=== PATIENT | female | born 1975 | race Caucasian/White ===

== ENCOUNTER 2017-02-03 08:05 | Emergency (ER) | payer OTHER ==
[2017-02-03 08:11] VITALS: RESP 18
--- NOTE | 2017-02-03 08:17 | EDPHY ---
H & P Stated Complaint: Mid abd pain since 1am;nausea, no vomiting or diarrhea Time Seen by Provider: 02/03/17 08:16 - Personal History LMP (Females 10-55): Now Current Tetanus Diphtheria and Acellular Pertussis (TDAP): Yes Tetanus Vaccine Date: unk - Medical/Surgical History Hx Asthma: No Hx Chronic Respiratory Disease: No Hx Diabetes: No Hx Cardiac Disease: No Hx Renal Disease: No Hx Cirrhosis: No Hx Alcoholism: No Hx HIV/AIDS: No Hx Splenectomy or Spleen Trauma: No Other PMH: hx: migraines, , R ovary removal, APPY, anemia, chronic back pain - Social History Smoking Status: Current some day smoker Constitutional: Initial Vital Signs Temperature (C) 36.7 C 02/03/17 08:05 Heart Rate 69 02/03/17 08:05 Respiratory Rate 18 02/03/17 08:05 Blood Pressure 105/74 02/03/17 08:05 O2 Sat (%) 97 02/03/17 08:05 O2 Delivery Mode Room Air Allergies/Adverse Reactions: No Known Allergies Allergy (Verified 02/03/17 08:07) Home Medications: Medication Instructions Recorded Cyclobenzaprine [Flexeril 10 MG 10 mg PO 02/03/17 (*)] Ranitidine HCl [Zantac 75] 150 mg PO DAILY #60 tablet 02/03/17 traMADol [Ultram 50 mg (*)] 50 mg PO Q4 02/03/17 Medical Decision Making ED Course/Re-evaluation: CHIEF COMPLAINT: Abdominal pain HISTORY OF PRESENT ILLNESS: 41-year-old female who has had both a appendectomy and cholecystectomy. She has chronic back pain she has been using 800 mg of ibuprofen once to twice a day for quite a while. She has never had pain like this before. She has pain right in the epigastric area with some nausea but no vomiting diarrhea fevers or chills. She denies any bad food. The pain started about 1:00 a.m. last night which is about 7 and 0.5 hours ago. She denies any associated symptoms. REVIEW OF SYSTEMS: A 10 point review of systems was performed and is negative with the exception of the elements mentioned in the history of present illness. PHYSICAL EXAM: HR, BP, O2 Sat, RR. Temp noted General Appearance: Alert, well hydrated, appropriate, and non-toxic appearing. Head: Atraumatic without scalp tenderness or obvious injury Eyes: Pupils equal, round, reactive to light and accommodation, EOMI, no trauma , no injection. Ears: Clear bilaterally, no perforation, normal landmarks Nose: Atraumatic, no rhinorrhea, clear. Throat: There is no erythema or exudates, no lesions, normal tonsils, mucus membranes moist. Neck: Supple, 2+ carotid upstroke, nontender, no lymphadenopathy. Respiratory: No retractions, no distress, no wheezes, and no accessory muscle use. Lungs are clear to auscultation bilaterally. Cardiovascular: Regular rate and rhythm, no murmurs, rubs, or gallops. Bilateral carotid, radial, dorsalis pedis, and posterior tibial pulses intact. Good capillary refill all extremities. Gastrointestinal: Abdomen is soft, mild tenderness in the epigastric area, non- distended, no masses, no rebound, no guarding, no peritoneal signs. Musculoskeletal: Normal active ROM of all extremities, atraumatic. Neurological: Alert, appropriate, and interactive. The patient has normal DTRs and non-focal cranial nerves, motor, sensory, and cerebellar exam. Skin: No rashes, good turgor, no nodules on palpation. Past medical history: Chronic back pain Past surgical history: Cholecystectomy, appendectomy Family history: Noncontributory Social history: , employed, does not abuse tobacco drugs or alcohol DIAGNOSTICS/PROCEDURES/CRITICAL CARE TIME: Study: CT of the abdomen and pelvis with IV contrast Indication: abdominal pain Results: CT scan of the abdomen and pelvis was obtained. The results of the study are normal. The study was read by the radiologist, Dr. Rutherford. I viewed the images myself on the PACS system. DIFFERENTIAL DIAGNOSIS: The differential diagnosis for the patient's abdominal pain included but was not limited to ovarian cyst, pelvic inflammatory disease, ovarian torsion, urinary tract infection, ectopic , gastritis, peptic ulcer disease MEDICAL DECISION MAKING: This patient has a soft benign abdomen however she has got pain in the epigastric area. She has had both a cholecystectomy and appendectomy. Laboratory studies are pending. Additionally, CT scan is pending. This patient most likely has some sort of gastritis or peptic ulcer disease secondary to her chronic infrequent use of high-dose ibuprofen for her chronic back pain. I have given her a GI cocktail and also some Pepcid to see if that helps while we are waiting for further studies. CT is negative per Dr. Rutherford. I reassessed patient and discussed imaging results. She continues to have a benign abdomen on exam. I recommended discontinuing ibuprofen usage and following up with her PCP for back pain management solutions. Return precautions given. She is comfortable with this plan. - Data Points Laboratory Results: Laboratory Results 02/03/17 08:45 02/03/17 08:45 02/03/17 02/03/17 02/03/17 08:49 08:45 08:45 WBC RBC Hgb POC Hgb 10.9 gm/dL L gm/dL (12.6-16.3) Hct POC Hct 32 % L % (38-47) MCV MCH MCHC RDW Plt Count MPV Neut % (Auto) Lymph % (Auto) [place] % (Auto) Eos % (Auto) Baso % (Auto) Nucleat RBC Rel Count Absolute Neuts (auto) Absolute Lymphs (auto) Absolute Monos (auto) Absolute Eos (auto) Absolute Basos (auto) Absolute Nucleated RBC Immature Gran % Immature Gran # POC Sodium 141 mEq/L mEq/L (134-144) Sodium 138 mEq/L mEq/L (134-144) POC Potassium 4.0 mEq/L mEq/L (3.3-5.0) Potassium 4.3 mEq/L mEq/L (3.5-5.2) POC Chloride 106 mEq/L mEq/L (97-110) Chloride 107 mEq/L mEq/L (97-110) Carbon Dioxide 21 mEq/l L mEq/l (22-31) Anion Gap 10 mEq/L mEq/L (8-16) POC BUN 7 mg/dL mg/dL (7-23) BUN 9 mg/dL mg/dL (7-23) Creatinine 0.6 mg/dL mg/dL (0.6-1.0) POC Creatinine 0.5 mg/dL L mg/dL (0.6-1.0) Estimated GFR > 60 Glucose 88 mg/dL mg/dL (70-100) POC Glucose 89 mg/dL mg/dL (70-100) Calcium 9.0 mg/dL mg/dL (8.5-10.4) Total Bilirubin 0.5 mg/dL mg/dL (0.1-1.4) Conjugated Bilirubin 0.3 mg/dL mg/dL (0.0-0.5) Unconjugated Bilirubin 0.2 mg/dL mg/dL (0.0-1.1) AST 36 IU/L IU/L (14-46) ALT 48 IU/L IU/L (9-52) Alkaline Phosphatase 67 IU/L IU/L (38-126) Total Protein 7.0 g/dL g/dL (6.3-8.2) Albumin 3.6 g/dL g/dL (3.5-5.0) Lipase 42 IU/L IU/L (23-300) Beta HCG, Qual NEGATIVE 02/03/17 08:45 WBC 5.52 10^3/uL 10^3/uL (3.80-9.50) RBC 4.34 10^6/uL 10^6/uL (4.18-5.33) Hgb 9.8 g/dL L g/dL (12.6-16.3) POC Hgb Hct 31.7 % L % (38.0-47.0) POC Hct MCV 73.0 fL L fL (81.5-99.8) MCH 22.6 pg L pg (27.9-34.1) MCHC 30.9 g/dL L g/dL (32.4-36.7) RDW 17.2 % H % (11.5-15.2) Plt Count 396 10^3/uL 10^3/uL (150-400) MPV 8.5 fL L fL (8.7-11.7) Neut % (Auto) 56.3 % % (39.3-74.2) Lymph % (Auto) 31.3 % % (15.0-45.0) [place] % (Auto) 7.2 % % (4.5-13.0) Eos % (Auto) 3.6 % % (0.6-7.6) Baso % (Auto) 1.1 % % (0.3-1.7) Nucleat RBC Rel Count 0.0 % % (0.0-0.2) Absolute Neuts (auto) 3.10 10^3/uL 10^3/uL (1.70-6.50) Absolute Lymphs (auto) 1.73 10^3/uL 10^3/uL (1.00-3.00) Absolute Monos (auto) 0.40 10^3/uL 10^3/uL (0.30-0.80) Absolute Eos (auto) 0.20 10^3/uL 10^3/uL (0.03-0.40) Absolute Basos (auto) 0.06 10^3/uL 10^3/uL (0.02-0.10) Absolute Nucleated RBC 0.00 10^3/uL 10^3/uL (0-0.01) Immature Gran % 0.5 % % (0.0-1.1) Immature Gran # 0.03 10^3/uL 10^3/uL (0.00-0.10) POC Sodium Sodium POC Potassium Potassium POC Chloride Chloride Carbon Dioxide Anion Gap POC BUN BUN Creatinine POC Creatinine Estimated GFR Glucose POC Glucose Calcium Total Bilirubin Conjugated Bilirubin Unconjugated Bilirubin AST ALT Alkaline Phosphatase Total Protein Albumin Lipase Beta HCG, Qual Medications Given: Discontinued Medications Al Hydroxide/Mg Hydroxide (Maalox Susp) 30 ml PO ONCE ONE Stop: 02/03/17 08:30 Last Admin: 02/03/17 09:01 Dose: 30 ml Famotidine (Pepcid) 40 mg PO EDNOW ONE Stop: 02/03/17 08:30 Last Admin: 02/03/17 09:00 Dose: 40 mg Hydromorphone HCl (Dilaudid) 1 mg IVP EDNOW ONE Stop: 02/03/17 08:32 Last Admin: 02/03/17 09:02 Dose: 1 mg Hyoscyamine Sulfate (Levsin, Hyomax-Sl) 0.25 mg PO ONCE ONE Stop: 02/03/17 08:30 Last Admin: 02/03/17 09:01 Dose: 0.25 mg Sodium Chloride (Ns) 1,000 mls @ 0 mls/hr IV EDNOW ONE; Wide Open PRN Reason: Protocol Stop: 02/03/17 08:30 Last Admin: 02/03/17 08:59 Dose: 1,000 mls Lidocaine (Lidocaine 2% Viscous) 15 ml PO ONCE ONE Stop: 02/03/17 08:30 Last Admin: 02/03/17 09:01 Dose: 15 ml Point of Care Test Results: 02/03/17 08:49 POC Sodium 141 POC Potassium 4.0 POC Chloride 106 POC BUN 7 POC Creatinine 0.5 L POC Glucose 89 Departure - Departure Disposition: Home, Routine, Self-Care Clinical Impression: Abdominal pain Qualifiers: Abdominal location: generalized Qualified Code(s): R10.84 - Generalized abdominal pain Condition: Good Instructions: Abdominal Pain (ED) Additional Instructions: 1. Stop using ibuprofen. The high dosages you have been using over an extended period of time are likely causing stomach irritation and pain. 2. Follow up with your primary care provider for back pain management. 3. Return to the ED if you experience dark stools, vomit blood, have severe pain , or develop other worsening of condition. Referrals: Radha Capone MD [Primary Care Provider] - As per Instructions Prescriptions: Ranitidine HCl [Zantac 75] 150 mg PO DAILY #60 tablet
[2017-02-03] MEDS ORDERED: MAG HYDROX/AL HYDROX/SIMETH 30 ML UDCUP PO ONE (08:29)
[2017-02-03] MEDS ORDERED: FAMOTIDINE 20 MG TAB PO ONE (08:29)
[2017-02-03] MEDS ORDERED: NS 1,000 ML IV ONE (08:29)
[2017-02-03] MEDS ORDERED: LIDOCAINE 2% VISCOUS 15 ML UDCUP PO ONE (08:29)
[2017-02-03] MEDS ORDERED: HYOSCYAMINE SULFATE 0.125 MG TAB PO ONE (08:29)
[2017-02-03] MEDS ORDERED: HYDROmorphONE/DILAUDID 1 MG/ML SYR IVP ONE (08:31)
[2017-02-03 08:52] LABS: % IMMATURE GRANULYOCYTES 0.5 % (0.0-1.1); ABSOLUTE IMMATURE GRANULOCYTES 0.03 10^3/uL (0.00-0.10); ADD DIFF? NO; ADD MORPH? NO; ADD SCAN? NO; ATYPICAL LYMPHOCYTE FLAG 10 (0-99); FRAGMENT RBC FLAG 20 (0-99); HEMATOCRIT 31.7 % (38.0-47.0); HEMOGLOBIN 9.8 g/dL (12.6-16.3); LEFT SHIFT FLG 0 (0-99); LIPEMIA HEMOLYSIS FLAG 80 (0-99); MEAN CELL HEMOGLOBIN 22.6 pg (27.9-34.1); MEAN CELL HEMOGLOBIN CONCENTR. 30.9 g/dL (32.4-36.7); MEAN PLATELET VOLUME 8.5 fL (8.7-11.7); PLATELET CLUMPS FLAG 0 (0-99); PLATELET COUNT 396 10^3/uL (150-400); RED BLOOD CELL COUNT 4.34 10^6/uL (4.18-5.33); RED CELL DISTRIBUTION WIDTH 17.2 % (11.5-15.2)
[2017-02-03] MEDS ORDERED: IOPAMIDOL (ISOVUE-300) 100 ML BTL ONE (09:07)
[2017-02-03 09:27] LABS: ALANINE AMINOTRANSFERASE 48 IU/L (9-52); ALBUMIN 3.6 g/dL (3.5-5.0); ALKALINE PHOSPHATASE 67 IU/L (38-126); ANION GAP 10 mEq/L (8-16); ASPARTATE AMINOTRANSFERASE 36 IU/L (14-46); BILIRUBIN,TOTAL 0.5 mg/dL (0.1-1.4); BILIRUBIN-CONJUGATED 0.3 mg/dL (0.0-0.5); BILIRUBIN-UNCONJUGATED 0.2 mg/dL (0.0-1.1); CARBON DIOXIDE 21 mEq/l (22-31); CHLORIDE 107 mEq/L (97-110); CREATININE 0.6 mg/dL (0.6-1.0); GLOMERULAR FILTRATION RATE > 60; GLUCOSE 88 mg/dL (70-100); POTASSIUM 4.3 mEq/L (3.5-5.2); SODIUM 138 mEq/L (134-144)
[2017-02-03 10:41] VITALS: BP 132/85; PULSE 68; TEMP 98.4; O2SAT 96
== END 2017-02-03 10:38 | disposition home or self-care (01) ==
DX: R10.84 Generalized abdominal pain (principal); F17.200 Nicotine dependence, unspecified, uncomplicated; E86.9 Volume depletion, unspecified
CPT/HCPCS: 82947-QW; 96374; J1170; Q9967

== ENCOUNTER 2017-08-23 23:51 | Observation (INO) | payer OTHER ==
--- NOTE | 2017-08-24 00:06 | EDPHY ---
H & P Stated Complaint: SUPRAPUBIC PAIN X 2 DAYS, RADIATING TO L PELVIC Time Seen by Provider: 08/24/17 00:07 HPI/ROS: HPI CHIEF COMPLAINT: Abdominal pain HISTORY OF PRESENT ILLNESS: Patient is a 42-year-old female, she has a history of gallbladder disease and cholecystectomy, history of a appendectomy, she presents emergency room with lower abdominal pain times 24 hr. The pain is mainly intense on the left lower quadrant left adnexal region and suprapubic region. She has nausea but no vomiting. She states she is a few days late on her menstrual cycle. Last menstrual cycle was July 24. She denies any vaginal discharge or vaginal bleeding. Denies urinary symptoms. Denies dysuria. Denies fever. Denies chest pain or shortness of breath. Pain is located left lower abdomen. Currently 8/10 been present for 24 hr. Strong achiness. Patient is Swedish-speaking only. Nellie RN at bedside conference concierge. Past Medical History: Denies significant medical history Past Surgical History: Appendectomy, cholecystectomy Social History: Denies drugs alcohol tobacco. Family History: Noncontributory ROS REVIEW OF SYSTEMS: A comprehensive 10 point review of systems is otherwise negative aside from elements mentioned in the history of present illness. Exam Constitutional appears well nontoxic in no acute distress, triage nursing summary reviewed, vital signs reviewed, awake/alert. Eyes normal conjunctivae and sclera, EOMI, PERRLA. HENT normal inspection, atraumatic, moist mucus membranes, no epistaxis, neck supple/ no meningismus, no raccoon eyes. Respiratory clear to auscultation bilaterally, normal breath sounds, no respiratory distress, no wheezing. Cardiovascular rate normal, regular rhythm, no murmur, no edema, distal pulses normal. Gastrointestinal mild tender palpation left lower quadrant left adnexa and suprapubic region, no peritoneal signs, no rebound, no guarding, normal bowel sounds, no distension, no pulsatile mass. Genitourinary no CVA tenderness. Musculoskeletal no midline vertebral tenderness, full range of motion, no calf swelling, no tenderness of extremities, no meningismus, good pulses, neurovascularly intact. Skin pink, warm, & dry, no rash, skin atraumatic. Neurologic awake, alert and oriented x 3, AAOx3, moves all 4 extremities equally, motor intact, sensory intact, CN II-XII intact, normal cerebellar, normal vision, normal speech. Psychiatric normal mood/affect. Heme/Lymph/Immune no lymphadenopathy. Differential diagnosis includes but is not limited to and in no particular order : Bowel obstruction, diverticulitis, colitis, enteritis, perforated viscus, gastritis, GERD, esophagitis, urinary tract infection, pyelonephritis, kidney stones Medical Decision Making: Plan for this patient IV establishment blood draw, check urinalysis, check test, basic labs, IV fluids, IV Dilaudid for pain control IV Zofran nausea and re-evaluate. Re-evaluation: CT scan abdomen pelvis with IV contrast shows moderate amount of diverticulitis. Called to me by Dr. Bailon. 0228: Discussed results with the patient. She understands she will be admitted for pain control IV fluids and bowel rest. No free air or abscess or significant free fluid in the abdomen. Additionally she has nitrite positive UTI. 0235: Spoke with Dr. Mcdonald who agrees to admit patient, UTI and Diverticulitis. Source: Patient - Personal History LMP (Females 10-55): Unknown Current Tetanus Diphtheria and Acellular Pertussis (TDAP): Yes Tetanus Vaccine Date: unk - Medical/Surgical History Hx Asthma: No Hx Chronic Respiratory Disease: No Hx Diabetes: No Hx Cardiac Disease: No Hx Renal Disease: No Hx Cirrhosis: No Hx Alcoholism: No Hx HIV/AIDS: No Hx Splenectomy or Spleen Trauma: No Other PMH: hx: migraines, , R ovary removal, APPY, anemia, chronic back pain, BEE - Social History Smoking Status: Former smoker Constitutional: Initial Vital Signs Temperature (C) 37.0 C 08/23/17 23:58 Heart Rate 94 08/23/17 23:58 Respiratory Rate 18 08/23/17 23:58 Blood Pressure 116/71 08/23/17 23:58 O2 Sat (%) 98 08/23/17 23:58 O2 Delivery Mode Room Air Allergies/Adverse Reactions: No Known Allergies Allergy (Verified 02/03/17 08:07) Home Medications: Medication Instructions Recorded Cyclobenzaprine [Flexeril 10 MG 10 mg PO HS 02/03/17 (*)] Ranitidine HCl [Zantac 75] 150 mg PO DAILY #60 tablet 02/03/17 traMADol [Ultram 50 mg (*)] 50 - 100 mg PO HS PRN 02/03/17 Ferrous Sulfate [Ferrous Sulf 325 325 mg PO BID 08/24/17 MG (*)] Medical Decision Making - Diagnostics Imaging Results: Imaging Impressions Abdomen CT 08/24/17 01:47 Impression: 1. Moderate diverticulitis mid sigmoid colon without evidence of associated abscess. 2. 3 cm follicular cyst right adnexa. The study was performed as an emergency on-call case and discussed by telephone with Dr. Anton Heck at 0228 hrs. The final interpretation is concordant with the original communication. - Data Points Laboratory Results: Laboratory Results 08/24/17 00:18 08/24/17 00:18 Microbiology Results: MICROBIOLOGY 08/24/17 00:15 Urine,Clean Catch Urine Culture - Preliminary Medications Given: Acetaminophen (Tylenol) 650 mg PO Q4HRS PRN PRN Reason: Pain, Mild/Fever, Can Take PO Stop: 02/20/18 02:34 Last Admin: 08/24/17 11:00 Dose: 650 mg Hydromorphone HCl (Dilaudid) 2 mg PO Q4HRS PRN PRN Reason: Pain, Severe Able to Take PO Stop: 09/03/17 02:34 Last Admin: 08/25/17 03:35 Dose: 2 mg Dextrose/Sodium Chloride (D5w 1/2 Ns) 1,000 mls @ 100 mls/hr IV CONT OSVALDO Stop: 02/20/18 02:44 Last Admin: 08/25/17 03:35 Dose: 1,000 mls Metronidazole/Sodium Chloride (Flagyl 500 Mg (Premix)) 100 mls @ 100 mls/hr IV Q8HRS OSVALDO PRN Reason: Protocol Stop: 09/23/17 08:59 Last Admin: 08/24/17 21:09 Dose: 100 mls Ondansetron HCl (Zofran) 4 mg IVP Q4HRS PRN PRN Reason: Nausea/Vomiting, Can't Take PO Stop: 02/20/18 02:34 Last Admin: 08/24/17 16:44 Dose: 4 mg Discontinued Medications Ertapenem (Invanz) 1 gm IM EDNOW ONE PRN Reason: Protocol Stop: 08/24/17 02:29 Last Admin: 08/24/17 04:03 Dose: Not Given Hydromorphone HCl (Dilaudid) 0.5 mg IVP EDNOW ONE Stop: 08/24/17 00:14 Last Admin: 08/24/17 00:35 Dose: 0.5 mg Hydromorphone HCl (Dilaudid) 0.5 mg IVP EDNOW ONE Stop: 08/24/17 02:37 Last Admin: 08/24/17 02:48 Dose: 0.5 mg Sodium Chloride (Ns) 1,000 mls @ 0 mls/hr IV EDNOW ONE; Wide Open PRN Reason: Protocol Stop: 08/24/17 00:14 Last Admin: 08/24/17 00:35 Dose: 1,000 mls Ceftriaxone Sodium/Dextrose (Rocephin 1 Gm (Premix)) 50 mls @ 100 mls/hr IV EDNOW ONE PRN Reason: Protocol Stop: 08/24/17 01:22 Last Admin: 08/24/17 01:02 Dose: 50 mls Sodium Chloride (Ns) 1,000 mls @ 0 mls/hr IV ONCE ONE PRN Reason: Wide Open Stop: 08/24/17 01:48 Last Admin: 08/24/17 02:48 Dose: 1,000 mls Metronidazole/Sodium Chloride (Flagyl 500 Mg (Premix)) 100 mls @ 100 mls/hr IV EDNOW ONE PRN Reason: Protocol Stop: 08/24/17 03:33 Last Admin: 08/24/17 02:49 Dose: 100 mls Ketorolac Tromethamine (Toradol) 15 mg IVP EDNOW ONE Stop: 08/24/17 01:48 Last Admin: 08/24/17 02:56 Dose: 15 mg Ondansetron HCl (Zofran) 4 mg IVP EDNOW ONE Stop: 08/24/17 00:14 Last Admin: 08/24/17 00:35 Dose: 4 mg Departure - Departure Disposition: [facility] Acute Clinical Impression: Diverticulitis UTI (urinary tract infection) Qualifiers: Urinary tract infection type: acute cystitis Hematuria presence: with hematuria Qualified Code(s): N30.01 - Acute cystitis with hematuria Condition: Good
[2017-08-24] MEDS ORDERED: ONDANSETRON 4 MG/2 ML VIAL IVP ONE (00:13)
[2017-08-24] MEDS ORDERED: NS 1,000 ML IV ONE ×2 (00:13→01:47)
[2017-08-24] MEDS ORDERED: HYDROmorphONE/DILAUDID 2 MG/ML INJ IVP ONE ×2 (00:13→02:36)
[2017-08-24 01:02] LABS: PLATELET COUNT 420 10^3/uL (150-400)
[2017-08-24] MEDS ORDERED: KETOROLAC 15 MG/1 ML SDV IVP ONE (01:47)
[2017-08-24] MEDS ORDERED: IOPAMIDOL (ISOVUE-300) 100 ML BTL ONE (01:55)
[2017-08-24] MEDS ORDERED: ERTAPENEM 1 GM VIAL IM ONE (02:28)
[2017-08-24] MEDS ORDERED: PROMETHAZINE HCL 25 MG/ML INJ IVP PRN (02:35)
[2017-08-24] MEDS ORDERED: HYDROmorphone HCL/NS 0.5 MG/ML SYR IVP PRN (02:35)
[2017-08-24] MEDS ORDERED: ONDANSETRON DISINTEGRATING 4 MG TAB PO PRN (02:35)
[2017-08-24] MEDS ORDERED: ONDANSETRON 4 MG/2 ML VIAL IVP PRN (02:35)
[2017-08-24] MEDS ORDERED: HYDROmorphONE/DILAUDID 2 MG/ML INJ ONE (02:37)
[2017-08-24] MEDS: D5W 1/2 NS 1,000 ML IV SCH (03:57)
--- NOTE | 2017-08-24 04:11 | PDGENHP ---
History and Physical - Chief Complaint Abdominal pain - History of Present Illness 42 yo F w/ no significant PMHx presents with abdominal pain. Patient states she first noticed lower abdominal pain on Friday. Over the course of Friday the pain worsened so she came to the ED. Her pain is worst in the LLQ. She denies dysuria but does complain of urinary frequency. Work-up in the ED notable for UTI and uncomplicated diverticulitis on CT scan. History Information - Allergies/Home Medication List Allergies/Adverse Reactions: No Known Allergies Allergy (Verified 02/03/17 08:07) Home Medications: Cyclobenzaprine [Flexeril 10 MG (*)] 10 mg PO 02/03/17 [Last Taken Unknown] traMADol [Ultram 50 mg (*)] 50 mg PO Q4 02/03/17 [Last Taken Unknown] I have personally reviewed and updated: family history, medical history - Past Medical History no pertinent PMH - Family History Positive for: cancer - Social History Smoking Status: Former smoker Review of Systems Review of Systems: ROS: 10pt was reviewed & negative except for what was stated in HPI & below Physical Exam Physical Exam: Temp Pulse Resp BP Pulse Ox 37.0 C 72 16 113/74 93 08/24/17 03:29 08/24/17 03:29 08/24/17 03:29 08/24/17 03:29 08/24/17 03:29 O2 (L/minute) 2 Constitutional: appears nourished, uncomfortable Eyes: PERRL, EOMI Ears, Nose, Mouth, Throat: moist mucous membranes, no oral mucosal ulcers Cardiovascular: regular rate and rhythym, no murmur, rub, or gallop Respiratory: no respiratory distress, no rales or rhonchi Gastrointestinal: normoactive bowel sounds, tenderness (LLQ, supra-pubic) Skin: warm, normal color Musculoskeletal: full muscle strength, no muscle tenderness Neurologic: AAOx3, CN II-XII Intact Psychiatric: interacting appropriately, not anxious Lab Data & Imaging Review 08/24/17 00:18 08/24/17 00:18 WBC 11.98 10^3/uL (3.80-9.50) H 08/24/17 00:18 RBC 4.73 10^6/uL (4.18-5.33) 08/24/17 00:18 Hgb 12.4 g/dL (12.6-16.3) L 08/24/17 00:18 Hct 38.5 % (38.0-47.0) 08/24/17 00:18 MCV 81.4 fL (81.5-99.8) L 08/24/17 00:18 MCH 26.2 pg (27.9-34.1) L 08/24/17 00:18 MCHC 32.2 g/dL (32.4-36.7) L 08/24/17 00:18 RDW 23.7 % (11.5-15.2) H 08/24/17 00:18 Plt Count 420 10^3/uL (150-400) H 08/24/17 00:18 MPV 9.4 fL (8.7-11.7) 08/24/17 00:18 Neut % (Auto) 73.3 % (39.3-74.2) 08/24/17 00:18 Lymph % (Auto) 16.4 % (15.0-45.0) 08/24/17 00:18 [place] % (Auto) 7.2 % (4.5-13.0) 08/24/17 00:18 Eos % (Auto) 2.0 % (0.6-7.6) 08/24/17 00:18 Baso % (Auto) 0.6 % (0.3-1.7) 08/24/17 00:18 Nucleat RBC Rel Count 0.0 % (0.0-0.2) 08/24/17 00:18 Absolute Neuts (auto) 8.78 10^3/uL (1.70-6.50) H 08/24/17 00:18 Absolute Lymphs (auto) 1.97 10^3/uL (1.00-3.00) 08/24/17 00:18 Absolute Monos (auto) 0.86 10^3/uL (0.30-0.80) H 08/24/17 00:18 Absolute Eos (auto) 0.24 10^3/uL (0.03-0.40) 08/24/17 00:18 Absolute Basos (auto) 0.07 10^3/uL (0.02-0.10) 08/24/17 00:18 Absolute Nucleated RBC 0.00 10^3/uL (0-0.01) 08/24/17 00:18 Immature Gran % 0.5 % (0.0-1.1) 08/24/17 00:18 Immature Gran # 0.06 10^3/uL (0.00-0.10) 08/24/17 00:18 Platelet Estimate INCREASED (ADEQ) H 08/24/17 00:18 Microcytic Cells 1+ H 08/24/17 00:18 Tear Drop Cells 1+ H 08/24/17 00:18 Echinocytes 1+ H 08/24/17 00:18 Elliptocytes 1+ H 08/24/17 00:18 Sodium 142 mEq/L (135-145) 08/24/17 00:18 Potassium 4.0 mEq/L (3.5-5.2) 08/24/17 00:18 Chloride 107 mEq/L (97-110) 08/24/17 00:18 Carbon Dioxide 24 mEq/l (22-31) 08/24/17 00:18 Anion Gap 11 mEq/L (8-16) 08/24/17 00:18 BUN 11 mg/dL (7-23) 08/24/17 00:18 Creatinine 0.6 mg/dL (0.6-1.0) 08/24/17 00:18 Estimated GFR > 60 08/24/17 00:18 Glucose 97 mg/dL (70-100) 08/24/17 00:18 Calcium 8.9 mg/dL (8.5-10.4) 08/24/17 00:18 Total Bilirubin 0.4 mg/dL (0.1-1.4) 08/24/17 00:18 Conjugated Bilirubin 0.3 mg/dL (0.0-0.5) 08/24/17 00:18 Unconjugated Bilirubin 0.1 mg/dL (0.0-1.1) 08/24/17 00:18 AST 22 IU/L (14-46) 08/24/17 00:18 ALT 39 IU/L (9-52) 08/24/17 00:18 Alkaline Phosphatase 81 IU/L (38-126) 08/24/17 00:18 Total Protein 7.0 g/dL (6.3-8.2) 03/18/18 00:18 Albumin 3.8 g/dL (3.5-5.0) 08/24/17 00:18 Lipase 49 IU/L (23-300) 08/24/17 00:18 Beta HCG, Qual NEGATIVE 08/24/17 00:45 Urine Color YELLOW 08/24/17 00:10 Urine Appearance HAZY 08/24/17 00:10 Urine pH 7.0 (5.0-7.5) 08/24/17 00:10 Ur Specific [place] 1.011 (1.002-1.030) 08/24/17 00:10 Urine Protein NEGATIVE (NEGATIVE) 08/24/17 00:10 Urine Ketones NEGATIVE (NEGATIVE) 08/24/17 00:10 Urine Blood NEGATIVE (NEGATIVE) 08/24/17 00:10 Urine Nitrate POSITIVE (NEGATIVE) H 08/24/17 00:10 Urine Bilirubin NEGATIVE (NEGATIVE) 08/24/17 00:10 Urine Urobilinogen NEGATIVE EU (0.2-1.0) 08/24/17 00:10 Ur Leukocyte Esterase NEGATIVE (NEGATIVE) 08/24/17 00:10 Urine RBC NONE SEEN /hpf (0-3) 08/24/17 00:10 Urine WBC 1-3 /hpf (0-3) 08/24/17 00:10 Ur Epithelial Cells TRACE /lpf (NONE-1+) 08/24/17 00:10 Urine Bacteria 3+ /hpf (NONE SEEN) H 08/24/17 00:10 Urine Mucus TRACE /lpf (NONE-1+) 08/24/17 00:10 Urine Glucose NEGATIVE (NEGATIVE) 08/24/17 00:10 Imaging Review: CT A/P Diverticulitis sigmoid colon w inflammation. No abscess 3cm right ov cyst Spoke w Dr Martinez at 228am Finer Assessment & Plan Assessment: 42 yo F presents w/ abdominal pain and found to have diverticulitis and UTI. Plan: 1. Diverticulitis - Inflammation of the sigmoid colon noted with no abscess. Patient denies any prior history of diverticulitis. Very tender on exam but no rebound or distention noted. - CTX/Flagyl IV - Clear liquid diet, mIVF - Dilaudid for pain control - Surgery consult if worsening 2. UTI - Nitrate positive, 3+ bacteria on UA with urinary frequency. - CTX 1g qD - Blood and urine cultures ordered Diet - Clears Code - Full Ppx - SCDs Dispo - Admit under observation status
[2017-08-24] MEDS: HYDROmorphONE/DILAUDID 2 MG TAB PO PRN ×5 (04:42→21:43)
[2017-08-24 05:23] LABS: PLATELET COUNT 356 10^3/uL (150-400)
[2017-08-24] MEDS: ACETAMINOPHEN 325 MG TAB PO PRN (11:00)
--- NOTE | 2017-08-24 16:36 | ASMTCMCOM ---
CM Note CM Note Notes: Anticipate dc home independently when medically stable. CM available if needs/changes. Date Signed: 08/24/2017 04:35 PM Electronically Signed By:Ros Valdes RN
[2017-08-25] MEDS: D5W 1/2 NS 1,000 ML IV SCH (03:35)
[2017-08-25] MEDS: HYDROmorphONE/DILAUDID 2 MG TAB PO PRN ×3 (03:35→14:49)
[2017-08-25] MEDS ORDERED: traMADol 50 MG TAB PO PRN (10:22)
--- NOTE | 2017-08-25 15:08 | HOSPPROG ---
Hospitalist Progress Note Assessment/Plan: 42 yo F w first epsiode of uncomplicated diverticulitis diverticulitis: ceftriaxone/flagyl and regular diet proph: lmwh pain: po and IV pain meds hypoxemia: IS proph: LMWH Subjective: ct images reviewed/interpreted by me. patient seen w industrial gas servicer helper Objective: Vital Signs Temp Pulse Resp BP Pulse Ox 36.9 C 67 18 106/82 H 97 08/25/17 11:18 08/25/17 11:18 08/25/17 11:18 08/25/17 11:18 08/25/17 11:18 Laboratory Results 08/24/17 04:35 08/24/17 04:35 08/24/17 08/25/17 08/26/17 05:59 05:59 05:59 Intake Total 1200 500 Balance 1200 500 - Physical Exam Constitutional: no apparent distress, appears nourished Eyes: PERRL, anicteric sclera Ears, Nose, Mouth, Throat: moist mucous membranes, hearing normal Cardiovascular: regular rate and rhythym, no murmur, rub, or gallop Respiratory: no respiratory distress, no rales or rhonchi Gastrointestinal: other, No guarding (llq tenderness), No rebound Genitourinary: no bladder fullness, No kiran in urethra Skin: warm, normal color Musculoskeletal: full muscle strength, no muscle tenderness Neurologic: AAOx3, sensation intact bilaterally Psychiatric: interacting appropriately ICD10 Worksheet Patient Problems: Problems Problem Status Onset Diverticulitis Acute UTI (urinary tract infection) Acute Iron deficiency anemia Active Major depressive disorder Active Migraine with typical aura Active
[2017-08-25] MEDS: ENOXAPARIN 40 MG/0.4 ML SYR SC SCH (15:41)
[2017-08-25] MEDS: ACETAMINOPHEN 325 MG TAB PO PRN (18:44)
[2017-08-25] MEDS ORDERED: CYCLOBENZAPRINE 10 MG TAB PO SCH (21:00)
[2017-08-26 08:14] VITALS: RESP 16
[2017-08-26] MEDS: ENOXAPARIN 40 MG/0.4 ML SYR SC SCH (09:08)
--- NOTE | 2017-08-26 11:49 | HOSPPROG ---
Hospitalist Progress Note Assessment/Plan: Patient is a 42-year-old female with no significant past medical history. She presented to the emergency room with lower abdominal pain. She complained of urinary frequency. It was noted that she had diverticulitis on the CT scan. Today is my 1st encounter with the patient. Chart reviewed. * diverticulitis -has some inflammation of the sigmoid colon but without abscess -on ceftriaxone and Flagyl * urinary tract infection -this is pansensitive * hypoxemia -resolved proph: lmwh Plan: dc home, met w her and her with an dye can operator Subjective: Lexi said she is feeling much better today. Objective: Vital Signs Temp Pulse Resp BP Pulse Ox 37.0 C 53 L 16 98/58 L 95 08/26/17 08:00 08/26/17 08:00 08/26/17 08:00 08/26/17 08:00 08/26/17 08:00 Laboratory Results 08/24/17 04:35 08/24/17 04:35 08/25/17 08/26/17 08/27/17 05:59 05:59 05:59 Intake Total 500 1000 Balance 500 1000 - Physical Exam Constitutional: no apparent distress, appears nourished, No not in pain (slight left lower quadrant abd pain w palp) Ears, Nose, Mouth, Throat: hearing normal Cardiovascular: regular rate and rhythym Respiratory: no respiratory distress Gastrointestinal: normoactive bowel sounds, tenderness Skin: warm Musculoskeletal: full muscle strength Neurologic: AAOx3 Psychiatric: interacting appropriately ICD10 Worksheet Patient Problems: Problems Problem Status Onset Diverticulitis Acute UTI (urinary tract infection) Acute Iron deficiency anemia Active Major depressive disorder Active Migraine with typical aura Active
[2017-08-26 11:57] VITALS: BP 102/77; PULSE 58; TEMP 97.7; O2SAT 98
--- NOTE | 2017-08-26 14:34 | ASDISCHSUM ---
Discharge Information Plan Status:Home with No Needs Medically Cleared to Leave:08/26/2017 Discharge Date:08/26/2017 CM D/C Disposition:Home, Routine, Self-Care ADT D/C Disposition: Projected Discharge Date:08/26/2017 03:00 PM Transportation at D/C:Family Discharge Delay Reason: Follow-Up Date:08/26/2017 03:00 PM Discharge Slot: Final Diagnosis: Placement Information Patient Contact Information Contact Name:REGLA Relationship: Address:[address] City:[place] Alternate Phone: State/Zip Code:[place] [address] Email: Financial Information Financial Class:Self-Pay Primary Plan Desc:WE CARE Primary Plan Number:99 Secondary Plan Desc: Secondary Plan Number: Assessment Information [facility] CM Progress Note CM Note CM Note Notes: Anticipate dc home independently when medically stable. CM available if needs/changes. Date Signed: 08/24/2017 04:35 PM Electronically Signed By:Ros Valdes RN Intervention Information
--- NOTE | 2017-08-26 20:19 | GDS ---
[f rep st] DISCHARGE SUMMARY DISCHARGE DIAGNOSES: 1. Acute diverticulitis. 2. Urinary tract infection. 3. Obesity with a BMI of 34.8. 4. Acute hypoxemia. HISTORY OF PRESENT ILLNESS: Briefly, the patient is a 42-year-old female with no significant past me dical history. She presented to the emergency room with lower abdominal pain. She complained of uri nary frequency. It was noted that she had diverticulitis on the CT scan. She has improved significa ntly. She is eating and drinking well and will follow up with her primary care provider. HOSPITAL COURSE: 1. Diverticulitis. CT scan showed some inflammation of the sigmoid colon, but without abscess. She was treated with ceftriaxone and Flagyl. She will be discharged home on oral antibiotics. 2. Urinary tract infection. This is pansensitive. The antibiotic for the diverticulitis will cover this. 3. Hypoxemia, resolved. 4. Obesity. She has a BMI of 34.8. DISCHARGE CONDITION: Stable. Blood pressure is 102/77, heart rate 58, respiratory rate is 16, O2 sa turation on room air 98%, temperature is 36.5 Celsius. MEDICATIONS AT DISCHARGE: Please see the EMR. DISCHARGE INSTRUCTIONS: 1. Recommendation that she get follow-up with a manager clinical pharmacy and get a colonoscopy in 6 weeks. 2. To be aware that Flagyl can cause some nausea. Take with food. No alcohol while on this medicat ion. 3. Cipro can affect tendons, so if she has increased pain in her Achilles tendon or any other tendon s, see her doctor immediately. 4. Stay on a low-residue diet. If her pain returns, resume a clear liquid diet. 5. If she develops pain, fever, worsening abdominal pain, return to the ER. /[id number]/MODL
== END 2017-08-26 15:54 | disposition home or self-care (01) ==
LOC: F3E 08-24 03:23
PROVIDERS: ADMIT Student in an Organized Health Care Education/Training Program; ATTEND Internal Medicine
DX: K57.32 Diverticulitis of large intestine without perforation or abscess without bleeding (principal); N30.01 Acute cystitis with hematuria; R09.02 Hypoxemia; E86.9 Volume depletion, unspecified; E66.9 Obesity, unspecified; Z68.34 Body mass index [BMI] 34.0-34.9, adult; Z87.891 Personal history of nicotine dependence
CPT/HCPCS: G0378; J0696; J1170; J1650; J1885; J2405; Q9967

== ENCOUNTER 2018-04-26 19:14 | Emergency (ER) | payer OTHER ==
[2018-04-26] MEDS ORDERED: ONDANSETRON 4 MG/2 ML VIAL IVP ONE (19:39)
[2018-04-26] MEDS ORDERED: HYDROmorphONE/DILAUDID 2 MG/ML INJ IVP ONE (19:39)
[2018-04-26 19:54] LABS: PLATELET COUNT 381 10^3/uL (150-400)
[2018-04-26] MEDS ORDERED: DEXAMETHASONE 10 MG/ML VIAL IVP ONE (21:28)
[2018-04-26] MEDS ORDERED: METOCLOPRAMIDE 10 MG/2 ML VIAL IVP ONE (21:28)
[2018-04-26 21:39] VITALS: BP 112/70
--- NOTE | 2018-04-26 22:22 | EDPHY ---
H & P Stated Complaint: headache nausea x 1 hour "migraine" Time Seen by Provider: 04/26/18 19:33 HPI/ROS: Chief complaint: Headache History of present illness: This is a 43-year-old female with a history of migraine headaches who presents to the emergency department for another headache. She reports the headache began rather suddenly. It started in the back of her head now involves the right side of her head. She describes associated photo and phonophobia. Nausea and vomiting. This is 1 of the worst headaches she has had. She denies any precipitating factors. She denies any alleviating factors. She denies other associated signs or symptoms including no history of recent trauma, no fevers or cold symptoms, no paresthesias, weakness or paralysis or bowel or bladder dysfunction. Review of systems: A 10 point review of systems was obtained and other than described above was negative - Personal History LMP (Females 10-55): 15-21 Days Ago Tetanus Vaccine Date: unk - Medical/Surgical History Hx Asthma: No Hx Chronic Respiratory Disease: No Hx Diabetes: No Hx Cardiac Disease: No Hx Renal Disease: No Hx Cirrhosis: No Hx Alcoholism: No Hx HIV/AIDS: No Hx Splenectomy or Spleen Trauma: No Other PMH: hx: migraines, , R ovary removal, APPY, anemia, chronic back pain, BEE, anxiety - Social History Smoking Status: Former smoker - Physical Exam Exam: General Appearance: Alert, essentially in the position crying. Eyes: Pupils equal and round no pallor or injection. ENT, Mouth: Mucous membranes moist. Respiratory: There are no retractions, lungs are clear to auscultation. Cardiovascular: Regular rate and rhythm. Gastrointestinal: Abdomen is soft and non tender, no masses, bowel sounds normal. Neurological: Alert and oriented x4. Cranial nerves 2-12 grossly intact. Strength and sensation intact and symmetrical. No pronator drift. Ambulating well. Skin: Warm and dry, no rashes. Musculoskeletal: Neck is supple non tender. Extremities are symmetrical, full range of motion. Psychiatric: Patient is oriented X 3, there is no agitation. Constitutional: Initial Vital Signs Temperature (C) 36.7 C 04/26/18 19:16 Heart Rate 112 H 04/26/18 19:16 Respiratory Rate 16 04/26/18 19:16 Blood Pressure 103/89 H 04/26/18 19:16 O2 Sat (%) 98 04/26/18 19:16 O2 Delivery Mode Room Air Allergies/Adverse Reactions: No Known Allergies Allergy (Verified 02/03/17 08:07) Home Medications: Medication Instructions Recorded Cyclobenzaprine [Flexeril 10 MG 10 mg PO HS 02/03/17 (*)] Ranitidine HCl [Zantac 75] 150 mg PO DAILY #60 tablet 02/03/17 traMADol [Ultram 50 mg (*)] 50 - 100 mg PO HS PRN 02/03/17 Ferrous Sulfate [Ferrous Sulf 325 325 mg PO BID 08/24/17 MG (*)] Acetaminophen [Tylenol 325mg (*)] 650 mg PO Q4HRS PRN tab 08/26/17 Ciprofloxacin [Cipro] 500 mg PO BID #14 tab 08/26/17 metroNIDAZOLE [Flagyl 500 mg (*)] 500 mg PO TID #21 tab 08/26/17 Medical Decision Making - Diagnostics Imaging Results: Imaging Impressions Head CT 04/26/18 20:32 Impression: Normal CT of the head. Minimal chronic appearing maxillary sinusitis mucous membrane thickening noted. Results called and discussed with CRISTIAN Badillo on 04/26/2018 at 21:23. Imaging: Discussed imaging studies w/ call center trainer Radiologist ED Course/Re-evaluation: Patient is discussed with my secondary supervising physician Dr. Jc Jean. Patient presents to the emergency department for a severe headache. Given it was sudden in onset and one of the more intense headache she has had in her life an evaluation was pursued. Blood studies were unremarkable. CT scan of the head was negative. I discussed with the patient that she did have a number of red flag risk factors including sudden onset, with one of the worst headaches of her life. I recommended lumbar puncture to fully evaluate the headache. She has declined. I feel she is competent to make this decision. She is symptomatically treated and reports significant improvement in symptoms. She would like to be discharged home. Home care is discussed. She is to follow up with a primary care doctor for recheck. Strict return precautions are given. Patient voiced understanding and agreement with plan. Differential Diagnosis: Included but not limited to migraine headache, cluster headache, tension headache, intracranial bleed or mass - Data Points Laboratory Results: Laboratory Results 04/26/18 19:45 04/26/18 19:45 11/04/26/18 04/26/18 19:45 19:45 19:45 WBC 7.89 10^3/uL 10^3/uL (3.80-9.50) RBC 4.51 10^6/uL 10^6/uL (4.18-5.33) Hgb 11.5 g/dL L g/dL (12.6-16.3) Hct 36.0 % L % (38.0-47.0) MCV 79.8 fL L fL (81.5-99.8) MCH 25.5 pg L pg (27.9-34.1) MCHC 31.9 g/dL L g/dL (32.4-36.7) RDW 14.6 % % (11.5-15.2) Plt Count 381 10^3/uL 10^3/uL (150-400) MPV 9.1 fL fL (8.7-11.7) Neut % (Auto) 69.3 % % (39.3-74.2) Lymph % (Auto) 21.8 % % (15.0-45.0) [place] % (Auto) 6.8 % % (4.5-13.0) Eos % (Auto) 0.9 % % (0.6-7.6) Baso % (Auto) 0.8 % % (0.3-1.7) Nucleat RBC Rel Count 0.0 % % (0.0-0.2) Absolute Neuts (auto) 5.47 10^3/uL 10^3/uL (1.70-6.50) Absolute Lymphs (auto) 1.72 10^3/uL 10^3/uL (1.00-3.00) Absolute Monos (auto) 0.54 10^3/uL 10^3/uL (0.30-0.80) Absolute Eos (auto) 0.07 10^3/uL 10^3/uL (0.03-0.40) Absolute Basos (auto) 0.06 10^3/uL 10^3/uL (0.02-0.10) Absolute Nucleated RBC 0.00 10^3/uL 10^3/uL (0-0.01) Immature Gran % 0.4 % % (0.0-1.1) Immature Gran # 0.03 10^3/uL 10^3/uL (0.00-0.10) Sodium 139 mEq/L mEq/L (135-145) Potassium 3.8 mEq/L mEq/L (3.3-5.0) Chloride 107 mEq/L mEq/L (97-110) Carbon Dioxide 22 mEq/l mEq/l (22-31) Anion Gap 10 mEq/L mEq/L (6-14) BUN 8 mg/dL mg/dL (7-23) Creatinine 0.6 mg/dL mg/dL (0.6-1.0) Estimated GFR > 60 Glucose 97 mg/dL mg/dL (70-100) Calcium 9.3 mg/dL mg/dL (8.5-10.4) Beta HCG, Qual NEGATIVE Medications Given: Discontinued Medications Dexamethasone (Decadron Injection) 10 mg IVP EDNOW ONE Stop: 04/26/18 21:29 Last Admin: 04/26/18 21:33 Dose: 10 mg Diphenhydramine HCl (Benadryl Injection) 25 mg IVP EDNOW ONE Stop: 04/26/18 21:29 Last Admin: 04/26/18 21:33 Dose: 25 mg Hydromorphone HCl (Dilaudid) 1 mg IVP EDNOW ONE Stop: 04/26/18 19:40 Last Admin: 04/26/18 19:54 Dose: 1 mg Metoclopramide HCl (Reglan Injection) 10 mg IVP EDNOW ONE Stop: 04/26/18 21:29 Last Admin: 04/26/18 21:34 Dose: 10 mg Ondansetron HCl (Zofran) 4 mg IVP EDNOW ONE Stop: 04/26/18 19:40 Last Admin: 04/26/18 19:55 Dose: 4 mg Departure - Departure Disposition: Home, Routine, Self-Care Clinical Impression: Headache Qualifiers: Headache type: unspecified Headache chronicity pattern: acute headache Intractability: not intractable Qualified Code(s): R51 - Headache Condition: Good Instructions: Acute Headache (ED) Additional Instructions: Follow-up with a primary care doctor this week for recheck Use [id number] Aleve for the next 1-2 days as directed on the label for headache Please note we did offer you a lumbar puncture tonight, you declined If symptoms worsen or new symptoms develop return to the emergency department for recheck Referrals: NONE *PRIMARY CARE P,. [Primary Care Provider] - As per Instructions [facility],. [Clinic] - As per Instructions
== END 2018-04-26 22:29 | disposition home or self-care (01) ==
DX: G43.909 Migraine, unspecified, not intractable, without status migrainosus (principal)
CPT/HCPCS: 96374; J1100; J1170; J1200; J2405; J2765

== ENCOUNTER 2018-06-01 13:18 | Emergency (ER) | payer OTHER ==
[2018-06-01 13:38] VITALS: BP 121/80
[2018-06-01] MEDS ORDERED: TDAP ADULT 0.5 ML INJ (BOOSTRIX) IM ONE (13:57)
--- NOTE | 2018-06-01 13:59 | EDPHY ---
H & P Time Seen by Provider: 06/01/18 13:45 HPI/ROS: CHIEF COMPLAINT: Left index finger laceration HISTORY OF PRESENT ILLNESS: Sustained just prior to arrival accidentally with a knife making food REVIEW OF SYSTEMS: No foreign body sensation or weakness or numbness distally PAST MEDICAL HISTORY: Includes migraines, appendectomy, , cholecystectomy, anxiety Social history: Nonsmoker General Appearance: Alert and conversant, cooperative. Tetanus not up-to-date Transverse mid distal pad volar laceration on the left index finger. Normal distal 2 point discrimination intact. Normal capillary refill and flexor and extensor tendon. Emergency Department course/MDM: Procedure: Laceration repair. Verbal consent was obtained from the patient. The 1.5 cm laceration on the left index finger was anesthetized using 1% xylocaine without epinephrine. The wound was irrigated with standard emergency department protocol, draped and explored. There were no deep structures involved. No tendon injury was identified. No foreign body found. The wound was repaired with 5 0 nylon. The wound repair was simple. Excellent hemostasis was obtained. Wound care instructions were discussed and the patient was warned regarding scarring. The procedure was performed by myself. Smoking Status: Former smoker Constitutional: Initial Vital Signs Temperature (C) 36.8 C 06/01/18 13:33 Heart Rate 67 06/01/18 13:33 Respiratory Rate 18 06/01/18 13:33 Blood Pressure 121/80 H 06/01/18 13:33 O2 Sat (%) 99 06/01/18 13:33 Allergies/Adverse Reactions: No Known Allergies Allergy (Verified 06/01/18 13:31) Home Medications: Medication Instructions Recorded Cyclobenzaprine [Flexeril 10 MG 10 mg PO HS 02/03/17 (*)] Ranitidine HCl [Zantac 75] 150 mg PO DAILY #60 tablet 02/03/17 traMADol [Ultram 50 mg (*)] 50 - 100 mg PO HS PRN 02/03/17 Ferrous Sulfate [Ferrous Sulf 325 325 mg PO BID 08/24/17 MG (*)] Acetaminophen [Tylenol 325mg (*)] 650 mg PO Q4HRS PRN tab 08/26/17 Ciprofloxacin [Cipro] 500 mg PO BID #14 tab 08/26/17 metroNIDAZOLE [Flagyl 500 mg (*)] 500 mg PO TID #21 tab 08/26/17 MDM/Departure - MDM Medications Given: Discontinued Medications Diphtheria/Tetanus/Acell Pertussis (Boostrix) 0.5 ml IM .ONCE ONE Stop: 06/01/18 13:58 Last Admin: 06/01/18 14:01 Dose: 0.5 ml - Depart Disposition: Home, Routine, Self-Care Clinical Impression: Laceration of left index finger Qualifiers: Encounter type: initial encounter Damage to nail status: without damage Foreign body presence: without foreign body Qualified Code(s): S61.211A - Laceration without foreign body of left index finger without damage to nail, initial encounter Condition: Good Instructions: Laceration (ED) Additional Instructions: Wound Care Follow-Up: Removal of sutures in 10 days. Suture removal is complimentary in uncomplicated cases. Infection or abnormal findings would require reevaluation by the MD. In that case, you may be billed. Referrals: Radha Capone MD [Primary Care Provider] - As per Instructions
== END 2018-06-01 14:25 | disposition home or self-care (01) ==
PROC: 0HQGXZZ Repair Left Hand Skin, External Approach (ICD-10-PCS; principal; 2018-06-01)
DX: S61.211A Laceration without foreign body of left index finger without damage to nail, initial encounter (principal); W26.0XXA Contact with knife, initial encounter; Y92.9 Unspecified place or not applicable; Y93.G1 Activity, food preparation and clean up; Y99.9 Unspecified external cause status